=== PATIENT | male | born 1990 | race African-American/Black ===

== ENCOUNTER 2018-02-21 07:33 | Emergency (ER) | payer MEDICAID, SELFPAY ==
[~2018-02-21] VITALS: Ht 177.8 cm; Wt 72.6 kg
[2018-02-21 07:33] VITALS: BP 130/84
--- NOTE | 2018-02-21 07:35 | Emergency Room Report ---
History of Present Illness General Chief Complaint: Seizure Source: Patient, EMS Present Illness HPI Patient is a 27 year-old with reported seizure disorder history who reports being off of Keppra for unknown period time. Patient states that recently had been on 500 mg of Keppra. And had been feeling increased aura. The patient denies any recent seizures. The patient was brought in by EMS. Patient denies any fever or other current complaints. Allergies: Coded Allergies: No Known Allergies (Unverified , 02/21/18) Patient History Reviewed Nursing Documentation: PMH: Agreed; PSxH: Agreed Review of Systems All Other Systems: negative except mentioned in HPI Physical Exam Vital Signs Date Time Temp Pulse Resp B/P (MAP) Pulse Ox O2 Delivery O2 Flow Rate FiO2 02/21/18 07:25 97.7 108 16 130/84 99 Room Air 97.7 General Appearance: well appearing, no apparent distress, alert, GCS 15 Head: normocephalic, atraumatic ENT: hearing grossly normal, normal voice Neck: full range of motion, supple Respiratory: no respiratory distress, speaking full sentences Cardiovascular #1: normal inspection, normal peripheral pulses, regular rate, rhythm Gastrointestinal: normal inspection, normal bowel sounds, soft Musculoskeletal: normal inspection, no calf tenderness Neurologic: normal inspection, alert, oriented x3, responsive, normal gait Psychiatric: mood/affect normal Skin: no rash Medical Decision Making Diagnostic Impression: Primary Impression: Seizure disorder ER Course Patient is a 27-year-old with aura and prior history of seizures. Differential diagnosis included was not limited to pseudoseizure, substance abuse, medication withdrawal among others. Patient has a benign exam and does not appear to require any further imaging or laboratory testing at this time. The patient given oral Keppra. The patient was advised follow-up with neurologist. The patient is advised to follow up with primary care doctor in 1- 2 days. Patient is advised to return if any worsening condition or if any changes in status that are concerning. This report is dictated with [employer] department supervisor software which may occasionally lead to discrepancies related to use of this software. Last Vital Signs Date Time Temp Pulse Resp B/P (MAP) Pulse Ox O2 Delivery O2 Flow Rate FiO2 02/21/18 07:25 97.7 108 16 130/84 99 Room Air 97.7 Status: improved Disposition: HOME, SELF-CARE Condition: Stable Gonzalez Askew MD Feb 21, 2018 07:35
[2018-02-21 08:04] VITALS: BP 130/84
[2018-02-21] MEDS ORDERED: KEPPRA500 M4 ORAL (08:29)
== END 2018-02-21 08:05 | disposition left against medical advice (07) ==
LOC: EDBD 07:33 → EDSEX 07:51 → EMR 07:51
DX: G40.909 Epilepsy, unspecified, not intractable, without status epilepticus (principal); Z53.21 Procedure and treatment not carried out due to patient leaving prior to being seen by health care provider
CPT/HCPCS: 99282